=== PATIENT | female | born 1960 | race Caucasian/White ===

== ENCOUNTER 2017-10-05 14:14 | Inpatient (IN) ==
[2017-10-05] MEDS ORDERED: 0.9 % SODIUM CHLORIDE 1,000 ML IV ONE ×4 (14:23→22:36)
[2017-10-05] MEDS ORDERED: LORazepam 2 MG/ML VIAL IV ONE (14:40)
[2017-10-05 15:15] LABS: Basophils # (Auto) 0 K/mcL (0.0-0.3); Basophils % (Auto) 0 % (0.0-2.0); Eosinophils # (Auto) 0 K/mcL (0.0-0.7); Eosinophils % (Auto) 0.1 % (0.0-7.0); Granulocytes % (Auto) 94.2 % (38.0-78.0); Lymphocytes # (Auto) 0.8 K/mcL (1.5-4.8); Lymphocytes % (Auto) 4.2 % (15.5-49.0); Mean Cell Volume 90.2 fL (80.0-100.0); Mean Corpuscular HGB Conc 33.2 g/dL (31.0-36.0); Mean Corpuscular Hemoglobin 29.9 pg (26.0-34.0); Monocytes # (Auto) 0.3 K/mcL (0.1-0.9); Monocytes % (Auto) 1.5 % (1.0-12.0); Platelet Count 167 K/mcL (140-440); RBC 5.09 M/mcL (4.00-5.20); Red Cell Distribution Width 14.9 % (11.5-14.5)
--- NOTE | 2017-10-05 15:15 | Cat Scan Report ---
CLINICAL INFORMATION: Neck pain COMPARISON: None. TECHNIQUE: 0.625 mm helical slices were obtained from the skull base through the superior T2 end plate, and following reconstruction, 2.5 mm sagittal, coronal and axial reformations were then processed. The exam was reviewed at bone and soft tissue windows. The exam was performed using radiation dose optimization techniques including, but not limited to, automated exposure control, adjustment of the mA and/or kV according to patient size and use of iterative reconstruction technique. FINDINGS: Sagittal reformatted images show solid C3-4 anterior fusion and also facet fusion which is likely congenital. The C3 vertebral body is retrolisthesed 4 mm. There is also 4 mm of C7 anterior subluxation due to degenerative facet disease. 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 No other osseous abnormalities. The brainstem cerebellum and cervical cord are normal in contour and caliber. No soft tissue abnormality. Soft tissues are significant for moderate dilatation of the visualized thoracic esophagus. C2-3 disc level is normal. At C3-4 fusion level, the central canal, lateral recesses and IV foramen are normal width At C4-5, moderate broad disc spur complex and facet arthropathy result in moderate central canal, moderate right and mild left IV foraminal narrowing impinging the exiting right C5 nerve root At C5-6, large broad disc spur, with right-sided asymmetry results in severe central canal, right lateral recess/IV foraminal narrowing and moderate left IV foraminal narrowing. The exiting C6 nerve roots may be impinged. At C6-7, large broad disc spur complex with left-sided asymmetry and facet arthropathy result in moderate central canal left lateral recess and IV foraminal narrowing potentially impinging the exiting left C7 nerve root At C7-T1, moderate broad disc spur complex and spondylolisthesis result in severe left and moderate right IV foraminal narrowing possible vague exiting left C8 nerve root. IMPRESSION: 1. Multilevel degenerative change resulting in significant central canal, lateral recess and IV foraminal narrowing - please see above 2. 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 Solid anterior C3-4 fusion and also facet fusion - likely congenital 4.Moderate dilatation of the visualized thoracic esophagus. This could indicate the distal thoracic esophageal stricture. Consider: Esophagram Interpreted and Authenticated by: Frederick Magallanes 10/05/17
--- NOTE | 2017-10-05 15:20 | Cat Scan Report ---
CLINICAL INFORMATION: Chest pain COMPARISON: None TECHNIQUE: 0.625 mm axial slices were obtained from the lung apices through the bases without intravenous contrast. 2.5 mm Sagittal, coronal and axial reformatted images were processed and reviewed at bone, lung and soft tissue windows. 7 mm axial MIP images were also reconstructed to optimize pulmonary nodule detection.The exam was performed using radiation dose optimization techniques including, but not limited to, automated exposure control, adjustment of the mA and/or kV according to patient size and use of iterative reconstruction technique. FINDINGS: Pulmonary parenchymal windows shows focal scarring in the posterior segment of the right upper lobe with a few calcified granulomas in both lung. No infiltrates or effusions. Mediastinal windows show marked dilatation of the entire thoracic esophagus to the level of the GE junction where there appears to be a severe stricture. There is no adenopathy mediastinal hilar or axillary regions. The noncontrasted thoracic aorta and pulmonary arteries are normal in contour and caliber. The heart is normal in size configuration is noted no appreciable calcific plaque in the coronary arteries. Thyroid is normal. Bones and soft tissues the chest wall show no significant abnormality IMPRESSION: Marked dilatation of the entire thoracic esophagus ostensibly due to a high-grade stricture at the GE junction. Suggest GI referral for endoscopy Interpreted and Authenticated by: Frederick Magallanes 10/05/17
[2017-10-05 15:36] LABS: ALT/SGPT 37 U/l (0-40); Albumin 2.4 gm/dL (3.2-5.2); Albumin/Globulin Ratio 0.5 (1.0-2.3); Alkaline Phosphatase 244 U/L (39-117); Blood Urea Nitrogen 78 mg/dl (6-20)
[2017-10-05 16:44] LABS: Appearance,Urine HAZY; Bacteria,Urine 0 /hpf (0); Bilirubin,Urine NEG (NEG); Color,Urine YELLOW; Glucose,Urine (UA) NEGATIVE (NEG); Leukocyte Esterase,Urine NEG /uL (NEG); Mucus,Urine FEW /hpf (0); Protein,Urine 30 mg/dL (NEG); Specific Gravity,Urine 1.016 (1.000-1.035); Urine Amorphous Crystals FEW /hpf (0); Urine Blood 0.03 mg/dL (<0.03); Urine Hyaline Cast 1 /lpf (0-2); Urine RBC 1 /hpf (0-1); Urine Squamous Epithelial Cell 0 /hpf (0-4); Urine WBC 17 /hpf (0-4); Urobilinogen,Urine NEG (NEG)
[2017-10-05 16:49] LABS: Amylase 32 U/L (28-100); Lipase 20 U/L (7-60)
[2017-10-05 16:51] LABS: Amphetamine Screen,Urine SUSPECT POSITIVE (NONDETECTED); Benzodiazepines Screen,Urine SUSPECT POSITIVE (NONDETECTED); Cocaine Screen,Urine NONE DETECTED (NONDETECTED); Opiate Screen,Urine SUSPECT POSITIVE (NONDETECTED); Oxycodone, Urine Screen NONE DETECTED (NONDETECTED)
--- NOTE | 2017-10-05 17:40 | Cat Scan Report ---
CLINICAL INFORMATION: Progressive flaccid weakness - leg COMPARISON: None. TECHNIQUE: 2.5 mm helical slices were obtained in the skull base to vertex. Following reconstruction, axial reformatted images were reviewed at bone and parenchymal windows. The exam was performed using radiation dose optimization techniques including, but not limited to, automated exposure control, adjustment of the mA and/or kV according to patient size and use of iterative reconstruction technique. FINDINGS: The ventricles, sulci, fissures, and cisterns are normal in size and configuration. No extra-axial fluid collections are identified. The cerebrum, brainstem and cerebellum are unremarkable. There is no evidence of hemorrhage, mass effect, or edema. Bone windows show no osseous abnormality. IMPRESSION: Normal head CT without contrast. Interpreted and Authenticated by: Frederick Magallanes 10/05/17
--- NOTE | 2017-10-05 17:50 | Cat Scan Report ---
CLINICAL INFORMATION: Bilateral leg flaccidity COMPARISON: Plain films from 07/10/2007 TECHNIQUE: 0.625 mm helical slices were obtained from the mid T12 through mid S2 vertebral bodies. Following reconstruction, 2.5 mm coronal, sagittal, and axial reformations (angle to the disc spaces) were processed. Exam was reviewed at bone and soft tissue windows.The exam was performed using radiation dose optimization techniques including, but not limited to, automated exposure control, adjustment of the mA and/or kV according to patient size and use of iterative reconstruction technique. FINDINGS: Sagittal reformatted images demonstrate chronic bilateral L5-S1 spondylolysis with grade 1 spondylolisthesis - 5 mm of L5 anterior subluxation. Soft tissues are unremarkable. T12-L1 disc level is normal At L1-2, there is minimal annular bulge. At L2-3, mild broad disc protrusion and facet arthropathy result in mild central canal and minimal bilateral IV foraminal narrowing. At L3-4, moderate broad disc extrusion with left-sided asymmetry and facet arthropathy result in moderate central canal and mild bilateral lateral recess/IV foraminal narrowing. At L4-5, moderate broad disc protrusion and marked facet arthropathy result in moderate central canal and moderate right IV foraminal narrowing. The exiting right L4 nerve root is mildly impinges. There is mild left IV foraminal narrowing. At L5 S1, moderate broad disc spur complex with right-sided asymmetry grade 1 spondylolisthesis mild thin moderate central canal and severe right lateral recess narrowing impinging the descending right S1 nerve root. There is moderate bilateral IV foraminal narrowing IMPRESSION: 1. Chronic bilateral L5-S1 spondylolysis with grade 1 spinal listhesis. Broad disc protrusion at this level resulting in severe right lateral recess narrowing impinging the descending right S1 nerve root. There is bilateral IV foraminal narrowing slightly exiting L5 nerve roots more prominent on the right. Mild central canal stenosis 2. At L4-5: Mild broad disc protrusion and marked facet arthropathy resulting in moderate central canal and right IV foraminal narrowing slightly impinging the exiting right L4 nerve root Interpreted and Authenticated by: Frederick Magallanes 10/05/17
--- NOTE | 2017-10-05 18:11 | Emergency Department Note ---
Neuro HPI - General Chief Complaint: Neuro Symptoms/Deficit Stated Complaint: pain all over Time Seen by Provider: 10/05/17 14:20 Source: patient, EMS Mode of arrival: EMS Limitations: no limitations - History of Present Illness HPI Narrative: 57-year-old female patient comes in somnolent complaining of pain in her left shoulder neck and back for the last 6 days, that is since 09/29/2017. It was difficult to get good history and review of systems from her secondary to falling asleep between answering with short sentences. At times she was more lucid and she did not complain of fever chills nausea vomiting diarrhea belly pain. She points to her left shoulder neck as primary cause of her pain and denies any other injuries. She is not complaining of shortness of breath here I reviewed records from [facility] however these dates do not exactly add up as she was seen on the at [facility] for similar [id number] of the thoracic spine was read as normal she was sent home with prednisone and hydrocodone. Symptoms continue to worsen and she was seen yesterday at [facility] again and she was given Lidoderm patch and Ativan. Chest x-ray at that time suggested reflux Later in her ER stay her boyfriend came in and he noted that over the last couple days she had been weaker and needing help ambulating with weakness in her lower extremities in addition to the pain in her neck arm/shoulder. I see report that she used amphetamines 4- 5 days ago as well On Anticoagulants: No - Related Data Home Medications: Previous Rx's Medication Instructions Recorded predniSONE [Prednisone] 20 mg PO DAILY #23 tablet 10/22/15 Allergies/Adverse Reactions: Allergies Allergy/AdvReac Type Severity Reaction Status Date / Time No Known Drug Allergies Allergy Unverified 10/05/17 19:47 Review of Systems Limitations: ROS unobtainable due to patients medical condition Past Medical History - Past Medical History Source: old records reviewed Medical history: Reports: other (History of cervical and lumbar spine herniated disks, achalasia) Surgical history ED: Reports: , other (Surgery for achalasia) - Social History smoking status: Current every day smoker Alcohol use: Reports: Occasionally Drug use: Reports: methamphetamine Physical Exam Resting, somnolent. Normocephalic atraumatic. Conjunctive are clear sclerae white and nonicteric. No nasal discharge or congestion. Oropharynx with somewhat dry buccal mucosa. Anterior neck is supple without lymphadenopathy or thyromegaly. Heart is regular rate and rhythm no murmur appreciated. Lungs are clear to auscultation bilaterally without wheezes rales rhonchi or respiratory distress. Abdomen is soft mild diffuse tenderness. No pedal edema. +2 radial pulse. Will wake up for me to quickly answer questions but then goes quickly back to sleep. Seems to be waxing and waning consciousness but is protecting her airway. Examination of the back of her neck and shoulder show no abnormalities or deformities. No ecchymoses lacerations abrasions edema erythema. From time to time I saw her move that left arm spontaneously although any palpation around the back of the neck or the left shoulder and she complains of pain. Likewise she is able to move her neck normally I do see her rotate extend and flex. She was not able to cooperate for rotator cuff maneuvers secondary to somnolence Limitations: no limitations Course Vital Signs Temperature 97.1 F 10/05/17 14:16 Pulse Rate 105 H 10/05/17 14:16 Respiratory Rate 22 10/05/17 14:16 Blood Pressure 151/66 10/05/17 14:16 Pulse Oximetry (%) 99 10/05/17 14:16 Temperature 97.4 F 10/06/17 03:32 Pulse Rate 88 10/06/17 03:32 Respiratory Rate 14 10/06/17 03:32 Blood Pressure 100/68 10/06/17 03:32 Pulse Oximetry (%) 98 10/06/17 03:32 Neuro Symptoms/Deficit - Lab Data Lab results reviewed: Yes I reviewed the patient's lab results. Result diagrams: 10/05/17 14:50 10/05/17 14:50 Lab Results 10/05/17 10/05/17 10/05/17 Range/Units 14:50 14:50 16:11 WBC 19.0 H (4.5-11.0) K/mcL RBC 5.09 (4.00-5.20) M/mcL Hgb 15.2 H (12.0-15.0) g/dL Hct 45.9 (36.0-48.0) % MCV 90.2 (80.0-100.0) fL MCH 29.9 (26.0-34.0) pg MCHC 33.2 (31.0-36.0) g/dL RDW 14.9 H (11.5-14.5) % Plt Count 167 (140-440) K/mcL MPV 8.0 (7.4-10.4) fL Gran % 94.2 H (38.0-78.0) % Lymph % (Auto) 4.2 L (15.5-49.0) % Sebastian % (Auto) 1.5 (1.0-12.0) % Eos % (Auto) 0.1 (0.0-7.0) % Baso % (Auto) 0 (0.0-2.0) % Gran # 17.9 H (1.8-8.0) K/mcL Lymph # (Auto) 0.8 L (1.5-4.8) K/mcL Sebastian # (Auto) 0.3 (0.1-0.9) K/mcL Eos # (Auto) 0 (0.0-0.7) K/mcL Baso # (Auto) 0 (0.0-0.3) K/mcL VBG Lactic Acid (0.5-2.2) mmol/L Sodium 134 (133-145) mmol/L Potassium 4.8 (3.3-5.1) mmol/L Chloride 96 (96-108) mmol/L Carbon Dioxide 16 L (22-30) mmol/L Anion Gap 22.0 H (8-16) BUN 78 H (6-20) mg/dl Creatinine 2.8 H (0.6-1.1) mg/dl GFR Calculation 18 Glucose 141 H (70-105) mg/dL Calcium 9.8 (8.6-10.4) mg/dl Total Bilirubin 0.6 (0.0-1.0) mg/dL AST 40 H (0-37) U/l ALT 37 (0-40) U/l Alkaline Phosphatase 244 H (39-117) U/L Total Creatine Kinase (24-170) IU/L Total Protein 7.2 (5.9-8.4) gm/dL Albumin 2.4 L (3.2-5.2) gm/dL Globulin 4.8 H (2.2-3.7) gm/dL Albumin/Globulin Ratio 0.5 L (1.0-2.3) Amylase 32 (28-100) U/L Lipase 20 (7-60) U/L Urine Color Urine Appearance Urine pH (5.0-9.0) Ur Specific [place] (1.000-1.035) Urine Protein (NEG) mg/dL Urine Glucose (UA) (NEG) mg/dL Urine Ketones (NEG) mg/dL Urine Occult Blood (<0.03) mg/dL Urine Nitrate (NEG) Urine Bilirubin (NEG) mg/dL Urine Urobilinogen (NEG) mg/dL Ur Leukocyte Esterase (NEG) /uL Urine RBC (0-1) /hpf Urine WBC (0-4) /hpf Ur Squamous Epith Cells (0-4) /hpf Amorphous Crystals (0) /hpf Urine Bacteria (0) /hpf Hyaline Casts (0-2) /lpf Urine Mucus (0) /hpf Ur Culture Indicated? Urine Myoglobin Salicylates mg/dL Urine Opiates Screen (NONDETECTED) Ur Opiates Confirm Ur Oxycodone Screen (NONDETECTED) Urine Methadone Screen (NONDETECTED) Ur Methadone Confirm Acetaminophen ug/mL Ur Barbiturates Screen (NONDETECTED) Ur Barbiturate Confirm Ur Phencyclidine Scrn (NONDETECTED) Urine PCP Confirm Ur Amphetamines Screen (NONDETECTED) U Amphetamines Confirm U Benzodiazepines Scrn (NONDETECTED) U Benzodiazepine Confm Urine Cocaine Screen (NONDETECTED) Urine Cocaine Confirm U Cannabinoids Confirm U Marijuana (THC) Screen (NONDETECTED) Ethyl Alcohol (<0.010) gm/dl 10/05/17 10/05/17 10/05/17 Range/Units 16:12 16:12 16:13 WBC (4.5-11.0) K/mcL RBC (4.00-5.20) M/mcL Hgb (12.0-15.0) g/dL Hct (36.0-48.0) % MCV (80.0-100.0) fL MCH (26.0-34.0) pg MCHC (31.0-36.0) g/dL RDW (11.5-14.5) % Plt Count (140-440) K/mcL MPV (7.4-10.4) fL Gran % (38.0-78.0) % Lymph % (Auto) (15.5-49.0) % Sebastian % (Auto) (1.0-12.0) % Eos % (Auto) (0.0-7.0) % Baso % (Auto) (0.0-2.0) % Gran # (1.8-8.0) K/mcL Lymph # (Auto) (1.5-4.8) K/mcL Sebastian # (Auto) (0.1-0.9) K/mcL Eos # (Auto) (0.0-0.7) K/mcL Baso # (Auto) (0.0-0.3) K/mcL VBG Lactic Acid 1.2 (0.5-2.2) mmol/L Sodium (133-145) mmol/L Potassium (3.3-5.1) mmol/L Chloride (96-108) mmol/L Carbon Dioxide (22-30) mmol/L Anion Gap (8-16) BUN (6-20) mg/dl Creatinine (0.6-1.1) mg/dl GFR Calculation Glucose (70-105) mg/dL Calcium (8.6-10.4) mg/dl Total Bilirubin (0.0-1.0) mg/dL AST (0-37) U/l ALT (0-40) U/l Alkaline Phosphatase (39-117) U/L Total Creatine Kinase (24-170) IU/L Total Protein (5.9-8.4) gm/dL Albumin (3.2-5.2) gm/dL Globulin (2.2-3.7) gm/dL Albumin/Globulin Ratio (1.0-2.3) Amylase (28-100) U/L Lipase (7-60) U/L Urine Color Yellow Urine Appearance Hazy Urine pH 5.0 (5.0-9.0) Ur Specific [place] 1.016 (1.000-1.035) Urine Protein 30 A (NEG) mg/dL Urine Glucose (UA) Negative (NEG) mg/dL Urine Ketones Neg (NEG) mg/dL Urine Occult Blood 0.03 A (<0.03) mg/dL Urine Nitrate Neg (NEG) Urine Bilirubin Neg (NEG) mg/dL Urine Urobilinogen Neg (NEG) mg/dL Ur Leukocyte Esterase Neg (NEG) /uL Urine RBC 1 (0-1) /hpf Urine WBC 17 H (0-4) /hpf Ur Squamous Epith Cells 0 (0-4) /hpf Amorphous Crystals Few A (0) /hpf Urine Bacteria 0 (0) /hpf Hyaline Casts 1 (0-2) /lpf Urine Mucus Few (0) /hpf Ur Culture Indicated? Yes Urine Myoglobin Salicylates mg/dL Urine Opiates Screen (NONDETECTED) Ur Opiates Confirm Ur Oxycodone Screen (NONDETECTED) Urine Methadone Screen (NONDETECTED) Ur Methadone Confirm Acetaminophen < 5.0 ug/mL Ur Barbiturates Screen (NONDETECTED) Ur Barbiturate Confirm Ur Phencyclidine Scrn (NONDETECTED) Urine PCP Confirm Ur Amphetamines Screen (NONDETECTED) U Amphetamines Confirm U Benzodiazepines Scrn (NONDETECTED) U Benzodiazepine Confm Urine Cocaine Screen (NONDETECTED) Urine Cocaine Confirm U Cannabinoids Confirm U Marijuana (THC) Screen (NONDETECTED) Ethyl Alcohol (<0.010) gm/dl 10/05/17 10/05/17 10/05/17 Range/Units 16:14 16:14 17:02 WBC (4.5-11.0) K/mcL RBC (4.00-5.20) M/mcL Hgb (12.0-15.0) g/dL Hct (36.0-48.0) % MCV (80.0-100.0) fL MCH (26.0-34.0) pg MCHC (31.0-36.0) g/dL RDW (11.5-14.5) % Plt Count (140-440) K/mcL MPV (7.4-10.4) fL Gran % (38.0-78.0) % Lymph % (Auto) (15.5-49.0) % Sebastian % (Auto) (1.0-12.0) % Eos % (Auto) (0.0-7.0) % Baso % (Auto) (0.0-2.0) % Gran # (1.8-8.0) K/mcL Lymph # (Auto) (1.5-4.8) K/mcL Sebastian # (Auto) (0.1-0.9) K/mcL Eos # (Auto) (0.0-0.7) K/mcL Baso # (Auto) (0.0-0.3) K/mcL VBG Lactic Acid (0.5-2.2) mmol/L Sodium (133-145) mmol/L Potassium (3.3-5.1) mmol/L Chloride (96-108) mmol/L Carbon Dioxide (22-30) mmol/L Anion Gap (8-16) BUN (6-20) mg/dl Creatinine (0.6-1.1) mg/dl GFR Calculation Glucose (70-105) mg/dL Calcium (8.6-10.4) mg/dl Total Bilirubin (0.0-1.0) mg/dL AST (0-37) U/l ALT (0-40) U/l Alkaline Phosphatase (39-117) U/L Total Creatine Kinase (24-170) IU/L Total Protein (5.9-8.4) gm/dL Albumin (3.2-5.2) gm/dL Globulin (2.2-3.7) gm/dL Albumin/Globulin Ratio (1.0-2.3) Amylase (28-100) U/L Lipase (7-60) U/L Urine Color Urine Appearance Urine pH (5.0-9.0) Ur Specific [place] (1.000-1.035) Urine Protein (NEG) mg/dL Urine Glucose (UA) (NEG) mg/dL Urine Ketones (NEG) mg/dL Urine Occult Blood (<0.03) mg/dL Urine Nitrate (NEG) Urine Bilirubin (NEG) mg/dL Urine Urobilinogen (NEG) mg/dL Ur Leukocyte Esterase (NEG) /uL Urine RBC (0-1) /hpf Urine WBC (0-4) /hpf Ur Squamous Epith Cells (0-4) /hpf Amorphous Crystals (0) /hpf Urine Bacteria (0) /hpf Hyaline Casts (0-2) /lpf Urine Mucus (0) /hpf Ur Culture Indicated? Urine Myoglobin Salicylates < 0.3 mg/dL Urine Opiates Screen Suspect positive A (NONDETECTED) Ur Opiates Confirm Not Reportable Ur Oxycodone Screen None detected (NONDETECTED) Urine Methadone Screen None detected (NONDETECTED) Ur Methadone Confirm Not Reportable Acetaminophen ug/mL Ur Barbiturates Screen None detected (NONDETECTED) Ur Barbiturate Confirm Not Reportable Ur Phencyclidine Scrn None detected (NONDETECTED) Urine PCP Confirm Not Reportable Ur Amphetamines Screen Suspect positive A (NONDETECTED) U Amphetamines Confirm Not Reportable U Benzodiazepines Scrn Suspect positive A (NONDETECTED) U Benzodiazepine Confm Not Reportable Urine Cocaine Screen None detected (NONDETECTED) Urine Cocaine Confirm Not Reportable U Cannabinoids Confirm Not Reportable U Marijuana (THC) Screen None detected (NONDETECTED) Ethyl Alcohol < 0.010 (<0.010) gm/dl 10/05/17 10/05/17 Range/Units 18:05 18:42 WBC (4.5-11.0) K/mcL RBC (4.00-5.20) M/mcL Hgb (12.0-15.0) g/dL Hct (36.0-48.0) % MCV (80.0-100.0) fL MCH (26.0-34.0) pg MCHC (31.0-36.0) g/dL RDW (11.5-14.5) % Plt Count (140-440) K/mcL MPV (7.4-10.4) fL Gran % (38.0-78.0) % Lymph % (Auto) (15.5-49.0) % Sebastian % (Auto) (1.0-12.0) % Eos % (Auto) (0.0-7.0) % Baso % (Auto) (0.0-2.0) % Gran # (1.8-8.0) K/mcL Lymph # (Auto) (1.5-4.8) K/mcL Sebastian # (Auto) (0.1-0.9) K/mcL Eos # (Auto) (0.0-0.7) K/mcL Baso # (Auto) (0.0-0.3) K/mcL VBG Lactic Acid (0.5-2.2) mmol/L Sodium (133-145) mmol/L Potassium (3.3-5.1) mmol/L Chloride (96-108) mmol/L Carbon Dioxide (22-30) mmol/L Anion Gap (8-16) BUN (6-20) mg/dl Creatinine (0.6-1.1) mg/dl GFR Calculation Glucose (70-105) mg/dL Calcium (8.6-10.4) mg/dl Total Bilirubin (0.0-1.0) mg/dL AST (0-37) U/l ALT (0-40) U/l Alkaline Phosphatase (39-117) U/L Total Creatine Kinase 36 (24-170) IU/L Total Protein (5.9-8.4) gm/dL Albumin (3.2-5.2) gm/dL Globulin (2.2-3.7) gm/dL Albumin/Globulin Ratio (1.0-2.3) Amylase (28-100) U/L Lipase (7-60) U/L Urine Color Urine Appearance Urine pH (5.0-9.0) Ur Specific [place] (1.000-1.035) Urine Protein (NEG) mg/dL Urine Glucose (UA) (NEG) mg/dL Urine Ketones (NEG) mg/dL Urine Occult Blood (<0.03) mg/dL Urine Nitrate (NEG) Urine Bilirubin (NEG) mg/dL Urine Urobilinogen (NEG) mg/dL Ur Leukocyte Esterase (NEG) /uL Urine RBC (0-1) /hpf Urine WBC (0-4) /hpf Ur Squamous Epith Cells (0-4) /hpf Amorphous Crystals (0) /hpf Urine Bacteria (0) /hpf Hyaline Casts (0-2) /lpf Urine Mucus (0) /hpf Ur Culture Indicated? Urine Myoglobin TNP Salicylates mg/dL Urine Opiates Screen (NONDETECTED) Ur Opiates Confirm Ur Oxycodone Screen (NONDETECTED) Urine Methadone Screen (NONDETECTED) Ur Methadone Confirm Acetaminophen ug/mL Ur Barbiturates Screen (NONDETECTED) Ur Barbiturate Confirm Ur Phencyclidine Scrn (NONDETECTED) Urine PCP Confirm Ur Amphetamines Screen (NONDETECTED) U Amphetamines Confirm U Benzodiazepines Scrn (NONDETECTED) U Benzodiazepine Confm Urine Cocaine Screen (NONDETECTED) Urine Cocaine Confirm U Cannabinoids Confirm U Marijuana (THC) Screen (NONDETECTED) Ethyl Alcohol (<0.010) gm/dl Arterial blood gas shows pH 7.31 PO2 of 80 and PCO2 of 35 - Radiology Data Radiology results reviewed: Yes I reviewed the patient's radiology results. At first I ordered a chest CT C-spine CT-this showed spondylosis but no acute features to account for pain. Importantly no evidence of spinal abscess was seen. As her case progressed we ended up getting a lumbar spine CT as well as a head CT for the obtundation. Again the showed no evidence of acute process but more chronic spondylosis/stenosis. CT the chest also was incidentally showed dilated esophagus-likely from chronic achalasia. I asked her boyfriend about this and he noted that this is been going on for quite some time After discussing the case with the hospitalist he asked me to order a renal ultrasound. This showed smooth kidneys consistent with an infiltrative process. However incidentally noted cholecystitis-I relayed these preliminary findings from the collision repair technician to Dr. Mulligan as patient had already left the ER Disposition Pt seen by PROJECTS MANAGER/PA only: No Clinical Impression: Metabolic acidosis, Acute kidney injury, Achalasia, Cholecystitis Back pain Qualifiers: Back pain location: back pain in unspecified location Chronicity: acute Back pain laterality: unspecified Qualified Code(s): M54.9 - Dorsalgia, unspecified Altered mental status, unspecified Qualifiers: Altered mental status type: stupor Qualified Code(s): R40.1 - Stupor Shoulder pain, left Qualifiers: Chronicity: acute Qualified Code(s): M25.512 - Pain in left shoulder Hypotension Qualifiers: Hypotension type: unspecified hypotension type Qualified Code(s): I95.9 - Hypotension, unspecified Summary: Patient initially came in with stable vitals just complaining of pain in her shoulder and neck which we worked up with laboratory and CT scan-based on the history and review of systems I got. She did receive 1 mg of Ativan for agitation Laboratory shows an acute kidney injury so IV fluids were started. Blood gases ordered secondary to elevated anion gap-this shows elevated anion gap metabolic acidosis likely from uremia however other etiologies cannot be fully excluded in the ER setting. Follow-up laboratories ordered for other etiologies. She received 3 L of normal saline in the ER. Urine was dark after Skel[place] placed Her obtundation and somnolence started worsening; blood pressure had to be supported with IV fluids. She did not have a fever nor did we have any source for infection despite CT of her entire spine, chest, head and she was not complaining of belly pain. I discussed her case with Dr. Mulligan the hospitalist and Dr. Graf the case management coordinator spoon maker. He started bicarb for metabolic acidosis. Dr. Mulligan agreed to admit the patient to the ICU with nephrology consult. I called Dr. Mulligan with renal ultrasound results after the patient left the ER- cholecystitis seen Disposition: Xfer As Inpt ([facility]) Condition: Critical
--- NOTE | 2017-10-05 18:28 | Nephrology Consult Note ---
History of Present Illness - Reason for Consult Patient information: Note initiated : 10/05/17 at 6:24 pm Patient: Sukhdev Sood a 57 y/o F admitted on for pain all over. Consult date: 10/05/17 acute renal failure, metabolic acidosis Requesting physician: Jose Antonio Ball - Chief Complaint Back pain, weakness and confusion - History of Present Illness Sukhdev Sood is a 57-year-old female with history of drug abuse (smoking meth) , back pain, esophageal motility disorder presented to [facility] ED for altered mental status and muscles weakness on 10/05/17. Nephrology consultation was requested for acute kidney injury. The patient is not able to give history. His family reported gradual decrease in mentation over the past week. She has been taking Motrin for pain. She was given fluids by family. She has no history of kidney disease. She was making urine. In ED, her urine after Skelton was dark colored which lightened up after IV fluid resuscitation. She received 3 L NS in ED. Her family it bedside. Review of Systems ROS unobtainable: due to mental status Past History Past medical history: Family reported: Dug abuse (smoking meth). Back pain. Esophageal motility disorder. Past surgical history: Unavailable. Past family history: Unavailable. Past social history: Unavailable. Medications and Allergies Home Medications Medication Instructions Recorded Confirmed Type predniSONE [Prednisone] 20 mg PO DAILY #23 tablet 10/22/15 Rx Allergies Allergy/AdvReac Type Severity Reaction Status Date / Time No Known Drug Allergies Allergy Unverified 10/05/17 19:47 Exam - Vital Signs Vital signs: Temp Pulse Resp BP Pulse Ox 97.1 F 87 25 H 101/69 96 10/05/17 14:16 10/05/17 17:48 10/05/17 17:48 10/05/17 17:48 10/05/17 17:48 - General Appearance General appearance: comatose EENT: mucous membranes moist Neck: supple Respiratory: clear Cardiology: edema Gastrointestinal: no tenderness Integumentary: cool/clammy Neurologic: obtunded Musculoskeletal: no deformities Results - Lab Results 10/05/17 14:50 10/05/17 14:50 Most recent lab results Calcium 9.8 mg/dl (8.6-10.4) 10/05/17 14:50 Assessment and Plan (1) Acute kidney injury Acute kidney injury with high anion gap metabolic acidosis, present on arrival. There is recent history of NSAID use, but no IV contrast administration. Intravascular volume depletion considered. Acute glomerulonephritis and acute rhabdomyolysis unlikely per work up. Acute interstitial nephritis considered. Work up: Urinalysis on 10/05/17: Yellow, hazy, pH 5.0, SG 1.016, protein 30, occult blood 0.03. Plan: US Renal, urine eosinophil smear requested. No acute hemodialysis need at this point. Avoid ACEI/ARB, NSAIDs, nephrotoxic medications and IV contrast. Monitor BMP and urine output. Status: Acute Priority: High (2) Metabolic acidosis IV fluids changed to Sodium Bicarbonate 150 mEq in 1L D5W at 100 ml/hour for metabolic acidosis. Status: Acute Priority: High (3) Acute metabolic encephalopathy Unlikely to be uremic only, but suspected contribution. Status: Acute Priority: High
[2017-10-05] MEDS ORDERED: SODIUM BICARBONATE VIAL 150 MEQ in DEXTROSE 5% IN WATER 850 ML IV SCH (19:00)
--- NOTE | 2017-10-05 19:06 | Internal Med History&Physical ---
Medical - H&P: HPI Patient information: Note initiated : 10/05/17 at 7:06 pm Service Date, if different from initiated Date: [] Patient: Sukhdev Sood a 57 y/o F admitted on for pain all over. Chief Complaint: [] Chief complaint: confused methamphetamine abuse History of present illness: Ms. Sood is a 57 year old F with history of methamphetamine abuse who was brought into the ER accompanied by significant other and friend in a confused state along with weakness lower extremity and inability to walk. Symptoms started roughly 7 days ago when patient was moving a table. Patient started experiencing sudden onset lower back pain 6 out of 10-10 out of 10 followed by lower extremity weakness and abnormal sensation. This was followed by inability to ambulate and would require her significant other to help her ambulate to bathroom. Over the course of 7 days patient has been taking multiple doses of ibuprofen to counter back pain The last couple of days patient has been sent laying on the bed. Significant other noted changes in mental status along with right upper extremity weakness since this morning. He noted associated slurring of speech. There is no associated bladder/ bowel incontinence. No episodes of seizure or loss of consciousness. With increasing concerns patient was brought in to [place] ER Patient was hypotensive with systolics around 80s in the ER. Initial workup was significant for acute renal failure with a creatinine of 2.8 BUN over 70 and anion gap acidosis. Urine screen positive for methamphetamine. Systolics mid 90s and a white count 19,000. Patient received blood cultures along with crystalloids. Nephrology was consulted. CT head/cervical spine/lumbar spine unremarkable. CT chest shows dilated esophagus likely secondary to high-grade stricture at GE junction. ABG 7.31/35. Over the course of ER stay patient's symptoms did not improve despite his crystalloid resuscitation , extensive iamging, her mental status actually continued to decline. Hospitalist service was requested for admission. At the time of evaluation patient confused and not able to provide any meaningful history. She is in a near obtunded state. endorses to her using amphetamine on Tuesday. Review of systems 10 point review of system was attempted but patient would answer only leading questions. Medical - H&P: PMH Medical history: Amphetamine use Surgical history: None could be obtained Pertinent family history: Unobtainable Social history: Positive for amphetamine, Last use saturday 09/30 Uses marijuana Rare alcohol use Other details could not be obtained due to patient's mental status Medical - H&P: Meds Home Medications Medication Instructions Recorded Confirmed Type predniSONE [Prednisone] 20 mg PO DAILY #23 tablet 10/22/15 Rx Allergies Allergy/AdvReac Type Severity Reaction Status Date / Time No Known Drug Allergies Allergy Unverified 10/05/17 19:47 Medical - H&P: Exam - Constitutional Vitals: Temp Pulse Resp BP Pulse Ox 97.1 F 83 15 122/79 98 10/05/17 14:16 10/05/17 18:16 10/05/17 18:16 10/05/17 18:16 10/05/17 18:16 General appearance: average body habitus Exam: Unresponsive Pupils symmetric oral cavity dry No ear or nose discharge Dry mucous membranes Neck no lymphadenopathy S1 and S2 tachycardia Abdomen soft Diminished breath sounds at bases Lower extremity loss of sensation Reflexes present and brisk ankle and knee Psych no agitation but minimally responsive Neuro altered mental status-lower extremity weakness Lower extremity reflexes brisk upper extremity absent biceps and triceps Medical - H&P: Reslt - Labs CBC & Chem 7: 10/05/17 14:50 10/05/17 14:50 Labs: Short CBC 10/05/17 Range/Units 14:50 WBC 19.0 H (4.5-11.0) K/mcL Hgb 15.2 H (12.0-15.0) g/dL Hct 45.9 (36.0-48.0) % Plt Count 167 (140-440) K/mcL BMP 10/05/17 14:50 Sodium 134 Potassium 4.8 Chloride 96 Carbon Dioxide 16 L BUN 78 H Creatinine 2.8 H Glucose 141 H Calcium 9.8 Cardiac Enzymes 10/05/17 Range/Units 18:05 Total Creatine Kinase 36 (24-170) IU/L Liver Function 10/05/17 Range/Units 14:50 Total Bilirubin 0.6 (0.0-1.0) mg/dL AST 40 H (0-37) U/l ALT 37 (0-40) U/l Alkaline Phosphatase 244 H (39-117) U/L Albumin 2.4 L (3.2-5.2) gm/dL Urine 10/05/17 Range/Units 16:13 Urine Color Yellow Urine Appearance Hazy Urine pH 5.0 (5.0-9.0) Ur Specific [place] 1.016 (1.000-1.035) Urine Protein 30 A (NEG) mg/dL Urine Glucose (UA) Negative (NEG) mg/dL Medical - H&P: A/P (1) Acute kidney injury Current visit: Yes Status: Acute * Lower extremity weakness- MRI brain/cellulitis thoracic/lumbar spine to rule out epidural abscess. Broad antibiotic coverage. * Acute renal failure-likely secondary to NSAID and volume depletion , normal CK. Continue crystalloids. Nephrology consult * Metabolic acidosis-likely secondary to uremia. Check salicylate level. Started on bicarbonate drip by nephrology * Sepsis from unclear source-blood cultures/antibiotics/crystalloids and close hemodynamic monitoring in ICU. Antibiotic coverage including vancomycin/Zosyn. CT abdomen and pelvis to rule out intra-abdominal source * Acute mental status changes likely secondary to sepsis and amphetamine use. Continue monitoring. Empiric broad-spectrum antibiotics * Lower extremity weakness negative CT cervical/lumbar spine. MRI spine a.m. to rule out vertebral acidosis. Check ESR * Full code * Prophylaxis heparin Plan * Admitted to ICU in light of acute renal failure/mental status change and neurological changes * nephrology consult * MRI head/C/T/L spine * Pro-calcitonin/ESR/CT abdomen * salicylate levels * Crystalloids * Critically ill with [place] score 16 Critical care time spent over 35 minutes in duration to 70 minutes on history and physical
[2017-10-05] MEDS ORDERED: ACETAMINOPHEN 1,000 MG/100 ML BOTTLE IV PRN (19:30)
[2017-10-05] MEDS ORDERED: MAGNESIUM SULFATE 2 GM/50 ML BAG IV PRN (19:30)
[2017-10-05] MEDS ORDERED: ACETAMINOPHEN 325 MG TABLET PO PRN (19:30)
[2017-10-05] MEDS ORDERED: ONDANSETRON 4 MG/2 ML VIAL IV PRN (19:30)
[2017-10-05] MEDS ORDERED: ACETAMINOPHEN 1,000 MG/100 ML BOTTLE IV ONE (19:35)
[2017-10-05] MEDS ORDERED: VANCOMYCIN PER PHARMACY IV SCH (19:37)
[2017-10-05] MEDS ORDERED: SODIUM BICARBONATE 50 MEQ/50 ML VIAL ONE (19:58)
[2017-10-05] MEDS: PIPERACILLIN SODIUM/TAZOBACTAM 2.25 GM in DEXTROSE 5% IN WATER 50 ML IV SCH (20:37)
[2017-10-05] MEDS ORDERED: SENNOSIDES/DOCUSATE SODIUM 1 TAB TABLET PO SCH (21:00)
[2017-10-05] MEDS ORDERED: VANCOMYCIN 1,000 MG in 0.9 % SODIUM CHLORIDE 250 ML IV ONE (21:00)
[2017-10-05] MEDS ORDERED: DOCUSATE SODIUM 100 MG CAPSULE PO SCH (21:00)
[2017-10-05] MEDS ORDERED: HEPARIN 5,000 UNIT/ML VIAL SQ SCH (21:00)
[2017-10-05] MEDS ORDERED: 0.9 % SODIUM CHLORIDE 10 ML SYRINGE IV SCH (22:00)
[2017-10-05] MEDS ORDERED: 0.9 % SODIUM CHLORIDE 250 ML IV SCH (22:45)
[2017-10-05] MEDS ORDERED: NOREPINEPHRINE BITARTRATE 16 MG in 0.9 % SODIUM CHLORIDE 234 ML IV SCH (22:45)
[2017-10-05] MEDS ORDERED: NOREPINEPHRINE BITARTRATE 4 MG/4 ML AMPUL IV ONE (23:50)
[2017-10-06] MEDS ORDERED: PROPOFOL 200 MG/20 ML VIAL IV ONE (01:25)
[2017-10-06] MEDS ORDERED: MIDAZOLAM 5 MG/5 ML VIAL IV ONE (01:25)
[2017-10-06] MEDS ORDERED: SUCCINYLCHOLINE 20 MG/ML ML IV ONE (01:25)
[2017-10-06] MEDS ORDERED: fentaNYL 100 MCG/2 ML VIAL IV ONE ×4 (01:25→02:17)
[2017-10-06] MEDS ORDERED: PROPOFOL 100 ML IV ONE (01:52)
[2017-10-06] MEDS ORDERED: fentaNYL 2,500 MCG in 0.9 % SODIUM CHLORIDE 200 ML IV SCH (02:00)
[2017-10-06] MEDS ORDERED: HEPARIN/NS 500 ML IV SCH (02:00)
[2017-10-06] MEDS ORDERED: PROPOFOL 100 ML IV SCH (02:00)
--- NOTE | 2017-10-06 02:29 | Transfer Summary ---
Transfer Discharge Sum: Prov Patient information: Note initiated : 10/06/17 at 2:21 am Service Date, if different from initiated Date: [] Patient: Sukhdev Sood 57 y/o F admitted on 10/05/17 for pain all over. Chief Complaint: [] Date of admission: 10/05/17 19:22 Discharge Date: 10/06/17 Primary care physician: PCP No Consults: 10/05/17 Consult to Physician [CONS] Stat Comment: Consulting Provider: Alisson Graf Reason For Exam: Physician to Consult 10/05/17 18:02 Consult to Physician [CONS] Stat Comment: Consulting Provider: Jose Antonio Ball Reason For Exam: Physician to Consult Transfer Discharge Sum: Diag - Discharge Diagnosis (1) Acute kidney injury Status: Acute Transfer Discharge Sum: Med - Medications Active and Home Medications: Home Medications predniSONE [Prednisone] 20 mg PO DAILY #23 tablet 10/22/15 [Rx] Active Medications Acetaminophen (Tylenol) 650 mg PO Q4-6HP PRN PRN Reason: PAIN/FEVER > 101 Chlorhexidine Gluconate (Peridex) 15 ml SWABMOUTH BID [facility] Docusate Sodium (Colace) 100 mg PO BID [facility] Last Admin: 10/05/17 20:44 Dose: Not Given Heparin Sodium (Porcine) (Heparin) 5,000 unit SQ Q12 [facility] Last Admin: 10/05/17 22:48 Dose: 5,000 unit Sodium Bicarbonate 150 meq/ (Dextrose) 1,000 mls @ 100 mls/hr IV Q10H [facility] Magnesium Sulfate (Magnesium Sulfate) 2 gm in 50 mls @ 50 mls/hr IV UD PRN PRN Reason: MG = or < 1.7 Acetaminophen (Ofirmev) 1,000 mg in 100 mls @ 200 mls/hr IV Q6HP PRN PRN Reason: PAIN/FEVER > 101 Piperacillin Sod/Tazobactam (Sod 2.25 gm/ Dextrose) 50 mls @ 100 mls/hr IV Q6H [facility] Last Infusion: 10/05/17 21:25 Dose: Infused Vancomycin HCl 500 mg/ Sodium (Chloride) 100 mls @ 100 mls/hr IV ONCE ONE Stop: 10/06/17 09:59 Vancomycin HCl 1,000 mg/ (Sodium Chloride) 250 mls @ 250 mls/hr IV Q24H [facility] Norepinephrine Bitartrate 16 (mg/ Sodium Chloride) 250 mls @ 9.37 mls/hr IV Q24H [facility]; Protocol Last Admin: 10/06/17 00:09 Dose: 5 mcg/min, 4.68 mls/hr Sodium Chloride (Sodium Chloride 0.9%) 1,000 mls @ 0 mls/hr IV BOLUS ONE Stop: 10/05/17 22:37 Last Admin: 10/05/17 22:42 Dose: 999 mls/hr Sodium Chloride (Sodium Chloride 0.9%) 250 mls @ 20 mls/hr IV .[id number] [facility] Last Admin: 10/06/17 00:10 Dose: 20 mls/hr Fentanyl 2,500 mcg/ Sodium (Chloride) 250 mls @ 2.5 mls/hr IV Q24H [facility]; Protocol Heparin Sodium/Sodium Chloride (Heparin/Ns) 500 mls @ 0 mls/hr IV .Q0M [facility]; Protocol Propofol (Diprivan) 100 mls @ IV .Q0M [facility]; Protocol Ondansetron HCl (Zofran) 4 mg IV Q4-6HP PRN PRN Reason: Nausea And Vomiting Senna/Docusate Sodium (Senna Plus Tablet) 1 tab PO HS [facility] Last Admin: 10/05/17 20:45 Dose: Not Given Sodium Chloride (Saline Flush) 10 ml IV Q8 [facility] Last Admin: 10/05/17 22:42 Dose: 10 ml Sodium Chloride (Saline Flush) 10 ml IV Q12 [facility] Vancomycin HCl (Vancomycin Per Pharmacy) 1 order IV UD [facility] Transfer Discharge Sum: Hosp Hospital course: \ Discharge diagnosis * Shock of unclear etiology-likely septic in the setting of 19,000 white count and procalcitonin 2.67 and h/o amphetamine abuse. Cultures drawn. Managed per guidelines. On 5 mics Levophed. Post 4 L crystalloid resuscitation. No evidence of intra-abdominal/chest source on CT * Rapidly developing ascending paralysis with respiratory failure-on mechanical ventilation per protocol. Unclear etiology. On broad antibiotic coverage for empiric coverage of epidural abscess. Start acyclovir 10 mg per KG. patient needs neuro consultation/further imaging including MRI further evaluation rule out ADEM/transverse myelitis/epidural abscess. Transfer to tertiary Center * Acute renal failure-likely secondary to NSAID and volume depletion , normal CK. Status post 4 L crystalloids * Metabolic acidosis-likely secondary to uremia. Normal salicylate level. Started on bicarbonate drip by nephrology * Acute mental status change- unclear etiology question Encephalitis/ADEM/sepsis , amphetamine use. On acyclovir/broad-spectrum antibiotics. Transferring to tertiary Center for neuro consult and further evaluation/neuroimaging. Brief hospital course Ms. Sood is a 57 year old F with history of methamphetamine abuse who was brought into the ER accompanied by significant other and friend in a confused state along with weakness lower extremity and inability to walk. Symptoms started roughly 7 days ago when patient was moving a table. Patient started experiencing sudden onset lower back pain 6 out of 10-10 out of 10 followed by lower extremity weakness and abnormal sensation. This was followed by inability to ambulate and would require her significant other to help her ambulate to bathroom. Over the course of 7 days patient has been taking multiple doses of ibuprofen to counter back pain The last couple of days patient has been sent laying on the bed. Significant other noted changes in mental status along with right upper extremity weakness since this morning. He noted associated slurring of speech. There is no associated bladder/ bowel incontinence. No episodes of seizure or loss of consciousness. With increasing concerns patient was brought in to [place] ER Patient was hypotensive with systolics around 80s in the ER. Initial workup was significant for acute renal failure with a creatinine of 2.8 BUN over 70 and anion gap acidosis. Urine screen positive for methamphetamine. Systolics mid 90s and a white count 19,000. Patient received blood cultures along with crystalloids. Nephrology was consulted. CT head/cervical spine/lumbar spine unremarkable. CT chest shows dilated esophagus likely secondary to high-grade stricture at GE junction. ABG 7.31/35. Over the course of ER stay patient's symptoms did not improve despite his crystalloid resuscitation , extensive iamging, her mental status actually continued to decline. Hospitalist service was requested for admission. At the time of evaluation patient confused and not able to provide any meaningful history. She is in a near obtunded state. endorses to her using amphetamine on Tuesday. 10/06-1:30 AM. Patient showed dramatic change in mental status was worsening slurring, loss of gag reflex along with forced vital capacity down to 1300 cc. Patient emergently intubated in light of failure to protect airway and impending respiratory arrest. Started on mechanical ventilation per protocol. On propofol fentanyl. Systolics around 80 and subsequently epinephrine started 5 mics. On Zosyn and vancomycin and acyclovir. Case discussed with [facility] neurologist Dr. Sandy with [facility] the patient for further management at [facility]. I appreciate hospitalist Dr. Pearce in facilitating transfer for further management of this complex patient with acute neurological changes. Patient will be transferred via air ambulance - Time Spent with Patient Total time spent providing and/or coordinating transfer services: Greater than 30 minutes Transfer Discharge Sum: Exam - Constitutional Vitals: Vital Signs Temp Pulse Resp Resp BP Pulse Ox Pulse Ox 10/06/17 01:40 14 99 10/06/17 01:26 88 25 H 93 10/06/17 01:01 90 16 136/81 96 10/06/17 00:46 85 17 138/95 97 10/06/17 00:41 79 18 137/81 97 10/06/17 00:31 79 16 124/102 95 10/06/17 00:16 80 15 103/64 96 10/06/17 00:07 97.1 F 12 103/68 95 10/06/17 00:01 75 13 95/69 97 10/05/17 23:46 71 17 81/55 98 10/05/17 23:31 77 13 89/61 97 10/05/17 23:16 80 10 L 97/70 98 10/05/17 23:01 75 12 82/56 97 10/05/17 22:46 72 14 75/54 97 10/05/17 22:42 74 13 75/56 97 10/05/17 22:14 73 13 72/55 96 10/05/17 21:46 81 13 100/67 97 10/05/17 21:43 84/65 10/05/17 20:16 85 15 101/68 98 10/05/17 20:01 80 13 108/67 97 10/05/17 19:46 81 16 83/59 98 10/05/17 19:33 114/66 10/05/17 19:32 15 100/68 10/05/17 19:18 13 114/66 10/05/17 18:16 83 15 122/79 98 10/05/17 18:01 91 H 16 100/68 98 10/05/17 17:48 87 25 H 101/69 96 10/05/17 17:16 118/71 10/05/17 17:01 92 H 20 99/62 98 10/05/17 16:46 92 H 15 116/70 99 10/05/17 16:31 93 H 15 110/70 98 10/05/17 16:16 93 H 17 90/58 97 10/05/17 16:01 94 H 21 88/65 97 10/05/17 15:46 94 H 17 89/66 98 10/05/17 15:44 95 H 17 99/73 98 10/05/17 15:35 94 H 23 H 88/60 98 10/05/17 15:32 93 H 17 78/54 95 10/05/17 15:31 94 H 18 81/58 97 10/05/17 15:16 96 H 19 101/62 99 10/05/17 15:13 98 H 18 104/73 99 10/05/17 14:49 109 H 113/94 98 10/05/17 14:16 97.1 F 105 H 22 151/66 99 Intake and Output 10/05/17 10/05/17 10/06/17 13:59 21:59 05:59 Intake Total 2049 1000 / 1000 Output Total 1600 / 1600 760 / 760 Balance 450 / 450 240 / 240 Intake: IV 2049 1000 / 1000 Sodium Chloride 0.9% 1,000 ml @ 1999 / 1999 Wide Open IV BOLUS ONE Rx#: [id number] Zosyn 2.25 gm In Dextrose 5% in 50 / 50 Water 50 ml @ 100 mls/hr IV Q6H [facility] Rx#:[id number] Oral 0 / 0 Output: Urine Catheter Amount 400 / 400 760 / 760 Void Amount 1200 / 1200 Uretheral (Skel[place]) 1200 / 1200 Other: Weight 152 lb 9.6 oz Patient Weight 10/06/17 05:59 Weight 152 lb 9.6 oz Transfer Discharge Sum: Data Procedures and tests throughout hospitalization: Transfer Discharge Sum: A/P - Problem Maintenance (1) Acute kidney injury Status: Acute - Plan Functional capacity at transfer: bed bound Overall status at transfer: patient is not back to baseline Disposition: [facility]
[2017-10-06] MEDS ORDERED: ACYCLOVIR SODIUM 500 MG VIAL IV SCH (02:30)
--- NOTE | 2017-10-06 02:36 | General Surgery Progress Note ---
Surgical - Auxillary Note - Subjective Patient Information: Note initiated : 10/06/17 at 2:35 am Service Date, if different from initiated Date: [] Patient: Sukhdev Sood 57 y/o F admitted on 10/05/17 for pain all over. Chief Complaint: Respiratory failure from multiple substance abuse. Called for emergency intubation and central line placement. Both procedures were tolerated well by patient. No changes in vital signs. Patient stable. See anesthesia record for details.
[2017-10-06] MEDS: PIPERACILLIN SODIUM/TAZOBACTAM 2.25 GM in DEXTROSE 5% IN WATER 50 ML IV SCH (03:38)
[2017-10-06] MEDS ORDERED: SODIUM BICARBONATE VIAL 150 MEQ in DEXTROSE 5% IN WATER 850 ML IV SCH (04:30)
--- NOTE | 2017-10-06 07:32 | XRay Report ---
CLINICAL INFORMATION: OG placement COMPARISON: None. FINDINGS: OG tube appears be coiled in a known moderate hiatal hernia - the tip is above the GE junction. The stomach and multiple loops small bowel are mildly dilated with decompression of the colon suggesting a partial distal small bowel obstruction. No free air or soft tissue mass. No pathologic calcification. IMPRESSION: 1. Partial distal small bowel obstruction pattern. Malpositioned OG tube - tip is coiled within a moderate known hiatal hernia above the GE junction Interpreted and Authenticated by: Frederick Magallanes 10/06/17
--- NOTE | 2017-10-06 07:37 | XRay Report ---
CLINICAL INFORMATION: Hypoxia - endotracheal tube placement COMPARISON: 10/04/2017 and 10/06/2017 0105 hours FINDINGS: Comparing the previous chest x-ray only 1.5 hours ago, there is now complete atelectasis of the left upper lobe with leftward shifting of the cardiomediastinal silhouette and elevation left diaphragm. Increased density is seen in the left paramediastinal region. Left lower lobe and entire right lung are well expanded and clear. Small left pleural effusion noted. OG tip is malpositioned with a known moderate hiatal hernia above the GE junction. Right IJ line tip overlies the SVC last brachycephalic junction. Endotracheal tip is 6 cm above the ju. Cardiomediastinal silhouette and pulmonary vasculature are normal. IMPRESSION: 1. Complete left upper lobe atelectasis - new from chest x-ray 1.5 hours ago. Given the hyperacute change, this should be due to mucous plugging the left upper lobe bronchus 2. Endotracheal tip is 6 cm above the uj. 3. OG tip malpositioned with a known moderate hiatal hernia - it is above the GE junction Interpreted and Authenticated by: Frederick Magallanes 10/06/17
--- NOTE | 2017-10-06 07:44 | XRay Report ---
CLINICAL INFORMATION: Hypoxia COMPARISON: 10/04/2017 FINDINGS: The heart size, mediastinum and pulmonary vessels are unremarkable. The lungs are clear. There are no effusions. The bones and soft tissues are within normal limits. IMPRESSION: Normal chest. Interpreted and Authenticated by: Frederick Magallanes 10/06/17
[2017-10-06] MEDS ORDERED: CHLORHEXIDINE GLUCONATE 1 ML ORAL.SOL SWABMOUTH SCH (09:00)
[2017-10-06] MEDS ORDERED: 0.9 % SODIUM CHLORIDE 10 ML SYRINGE IV SCH (09:00)
[2017-10-06] MEDS ORDERED: VANCOMYCIN 500 MG in 0.9 % SODIUM CHLORIDE 100 ML IV ONE ×2 (09:00)
--- NOTE | 2017-10-06 09:38 | Cat Scan Report ---
CLINICAL INFORMATION: Sepsis COMPARISON: None TECHNIQUE: 0.625 mm helical slices were obtained from the mid heart through the subtrochanteric regions. Following reconstruction, 2.5 mm sagittal, coronal and axial reformatted images were processed and reviewed at bone and soft tissue windows.The exam was performed using radiation dose optimization techniques including, but not limited to, automated exposure control, adjustment of the mA and/or kV according to patient size and use of iterative reconstruction technique. FINDINGS: Absence of intravenous and enteric contrast limits sensitivity of the exam. Lung bases show only subsegmental atelectasis in both posterior lower lobes. No effusion. Moderate size hiatal hernia noted. The visualized heart is grossly normal. Images through the abdomen show the noncontrasted liver to be normal in size and configuration and attenuation without focal lesion. The gallbladder is enlarged and there appears to be mild diffuse gallbladder wall thickening. No radiopaque stones identified. Intrahepatic and common bile ducts are normal caliber. Both noncontrasted kidneys are mildly enlarged: The left is 12.6 x 5 cm and the right is 14 x 5 cm. No focal renal lesions. The adrenal glands, spleen, pancreas and aorta are unremarkable. Stomach, small/large bowel show mild symmetric dilatation compatible with ileus, but no evidence of obstruction. There is a small amount of fluid in the right paracolic gutter and scattered edema throughout the mesentery. Images through the pelvis show Skelton catheter properly position in the urinary bladder which is grossly normal. Uterus is not definitely identified and may have been surgically removed or is quite atrophic. No free air or adenopathy. Chronic bilateral L5-S1 spondylolysis grade 1 spondylolisthesis results in moderate central canal and bilateral IV foraminal narrowing. No other significant osseous abnormality IMPRESSION: 1. Moderate gallbladder enlargement with diffuse wall thickening. Patient can't have cholecystitis - suggest abdominal ultrasound 2. Mild bilateral large smooth kidneys. This can be seen in multiple disorders including ATN, acute interstitial nephritis, blurred nephritis Coleman's etc. Please correlate with UA - consider nephrology consult 3. Mild fluid in the right paracolic gutter which is nonspecific and could indicate an adjacent inflammatory processes colitis. This exam, without use of enteric or IV contrast is suboptimal for the detection of subtle inflammatory processes within the colon and appendix. 4. Chronic bilateral L5-S1 spondylolysis and grade 1 spondylolisthesis resulting in moderate central canal and IV foraminal narrowing 5. Moderate hiatal hernia - stable Interpreted and Authenticated by: Frederick Magallanes 10/06/17
--- NOTE | 2017-10-06 09:41 | Ultrasound Report ---
CLINICAL INFORMATION: Abdominal pain COMPARISON: None. FINDINGS: Both kidneys are mildly enlarged: The right is 13 x 6 cm and the left is 11.5 x 6 cm. Cortical echotexture is elevated bilaterally. There is no stone cyst or solid lesion. Color Doppler is normal bilaterally for cerebral vascular blood flow. No evidence of hydronephrosis. Incidental note made of mild gallbladder wall thickening with small stones. The common bile is normal - 5 mm IMPRESSION: 1. Acute cholecystitis - incidentally noted 2. Mild bilateral renal enlargement with slight elevated cortical echotexture which can indicate a variety of different infiltrative pathologies - please see associated CT report. Please correlate with UA and consider nephrology consult Interpreted and Authenticated by: Frederick Magallanes 10/06/17
[2017-10-07] MEDS ORDERED: VANCOMYCIN 1,000 MG in 0.9 % SODIUM CHLORIDE 250 ML IV SCH (09:00)
== END 2017-10-06 03:32 | disposition short-term general hospital (02) | DRG 871 ==
LOC: ED 14:14 → ICU 19:27
PROVIDERS: ADMIT Internal Medicine; ATTEND Internal Medicine